=== PATIENT | female | born 1930 | race Caucasian/White ===

== ENCOUNTER 2017-05-10 17:14 | Emergency (ER) | payer MEDICARE, OTHER ==
[~2017-05-10] VITALS: Wt 62.5 kg
[~2017-05-10 17:14] MED LIST: AMLO-147 PO; ASPI-664 PO; AZIT500T5 PO; GABA300C16 PO; PANT40TA3 PO; SIMV40TA3 PO; VALS1TAB76 PO; ZOLP10TA PO
[2017-05-10] MEDS ORDERED: OLME40TA14 PO (19:16)
--- NOTE | 2017-05-10 19:19 | ERD ---
ER Documentation Chief Complaint Date/Time DATE: 05/10/17 TIME: 19:17 Chief Complaint HTN, FELT NAUSEATED PER DAUGHTER HPI This is an 86-year-old female with a history of hypertension. The patient's blood pressure runs around 160 systolic. The patient says that her blood pressure was elevated today and she felt dizzy. She says when she feels dizzy she notes her blood pressure is too high. Her readings at home were a systolic of 200-10. She has no headache no chest pain or shortness of breath no focal neurological complaints no weakness. The patient takes 2 blood pressure meds and takes clonidine as needed for "emergencies". The daughter says that for some reason every time the patient uses the restroom and voids her blood pressure will elevate in the 200s. ROS All systems reviewed and are negative except as per history of present illness. Medications Home Meds Active Scripts Olmesartan Medoxomil (Benicar) 40 Mg Tablet, 40 MG PO DAILY, #30 TAB Prov:NEFTALY LEO DO 05/10/17 Pantoprazole* (Protonix*) 40 Mg Tablet., 40 MG PO BID for 30 Days, TAB Prov:LATISHA CERVANTES MD 01/16/15 Azithromycin* (Azithromycin*) 500 Mg Tablet, 500 MG PO DAILY for 3 Days, TAB Prov:LATISHA CERVANTES MD 01/16/15 Reported Medications Amlodipine Besylate* (Amlodipine Besylate*) 10 Mg Tablet, 10 MG PO DAILY, TAB 01/15/15 Zolpidem Tartrate* (Ambien*) 10 Mg Tablet, 10 MG PO HS, TAB 01/15/15 Simvastatin (Simvastatin) 40 Mg Tablet, 40 MG PO DAILY, TAB 01/15/15 Valsartan-Hydrochlorothiazide (Valsartan-HCTZ) 160-12.5 Mg Tablet, 1 TAB PO DAILY, TAB 01/15/15 Gabapentin* (Gabapentin*) 300 Mg Capsule, 300 MG PO Q12, CAP 01/15/15 Aspirin* (Aspirin* EC) 81 Mg Tablet.dr, 81 MG PO DAILY, TAB 01/15/15 Allergies Allergies: Coded Allergies: No Known Allergy (Unverified , 01/14/15) PMhx/Soc Anesthesia Reaction: No Hx Neurological Disorder: No Hx Respiratory Disorders: No Hx Cardiac Disorders: Yes (htn) Hx Psychiatric Problems: No Hx Miscellaneous Medical Probl: Yes (L Breast CA , Chemo History, HTN, Hysterectomy) Hx Alcohol Use: No Hx Substance Use: No Hx Tobacco Use: No Smoking Status: Never smoker FmHx Family History: No coronary disease Physical Exam Vitals Vital Signs Date Time Temp Pulse Resp B/P Pulse Ox O2 Delivery O2 Flow Rate FiO2 05/10/17 17:16 99.4 87 18 198/79 99 Physical Exam Const: [Well-developed, well-nourished] Head: [Atraumatic, normocephalic] Eyes: [Normal Conjunctiva, PERRLA, EOMI, normal sclera, no nystagmus] ENT: [Normal External Ears, Nose and Mouth, moist mucus membranes.] Neck: [Full range of motion. No meningismus, no lymphadenopathy.] Resp: [Clear to auscultation bilaterally, no wheezing, rhonchi, rales] Cardio: [Regular rate and rhythm, no murmurs, S1 S2 present] Abd: [Soft, non tender x 4, non distended. Normal bowel sounds, no guarding or rebound, no pulsitile abdominal masses or bruits] Skin: [No petechiae or rashes, no ecchymosis , no maculopapular rash] Back: [No midline or flank tenderness] Ext: [No cyanosis, or edema, FROM x 4, normal inspection, neurovascularly intact x 4] Neur: [Awake and alert, STR 5/5 x 4, sensation intact x 4, no focal findings, cerebellum intact] Psych: [Normal Mood and Affect] Results 24 hrs Current Medications Medications (Trade) Dose Ordered Sig/Madeleine Route PRN Reason Start Time Stop Time Status Last Admin Dose Admin Nicardipine HCl (Cardene) 30 mg ONCE ONCE PO 05/10/17 19:30 05/10/17 19:31 Procedures/MDM Patient's initial blood pressure is 174/86. Will give a dose of Cardene p.o. and discharged home. I will discontinue the valsartan/hydrochlorothiazide because this will make her void more. Apparently when she voids her blood pressure spikes. I will substitute this with Benicar 40 mg p.o. Departure Diagnosis: Primary Impression: Hypertension Hypertension type: essential hypertension Qualified Code: I10 - Essential hypertension Condition: Stable Patient Instructions: High Blood Pressure (Hypertension) Referrals: NO PRIMARY,CARE PHYSICIAN (PCP) Additional Instructions: stop valsartan/hydrochlorothiazide NEFTALY LEO DO May 10, 2017 19:19
[2017-05-10] MEDS ORDERED: NICARDipine HCL 30 MG CAPSULE PO ONE (19:30)
[2017-05-10 19:46] VITALS: BP 154/55; PULSE 54; RESP 16
== END 2017-05-10 19:48 | disposition home or self-care (01) ==
LOC: E/R 17:14
DX: I10 Essential (primary) hypertension (principal); Z79.82 Long term (current) use of aspirin; Z85.3 Personal history of malignant neoplasm of breast
CPT/HCPCS: 99283